=== PATIENT | female | born 1995 | race Caucasian/White ===

== ENCOUNTER 2018-09-13 05:51 | Outpatient (CLI) | payer OTHER ==
[~2018-09-13] VITALS: Ht 162.6 cm; Wt 73.5 kg
[2018-09-13 06:17] VITALS: BP 106/58
[2018-09-14] MEDS ORDERED: PREN1TAB60 PO (00:11)
[2018-09-15] MEDS ORDERED: HYDR-3652 PO (10:47)
[2018-09-15] MEDS ORDERED: SENN-52 PO (10:49)
[2018-09-15] MEDS ORDERED: IBUP-1223 PO (10:50)
== END 2018-09-13 06:48 | disposition home or self-care (01) ==
LOC: LDOP 05:51
PROVIDERS: ATTEND Obstetrics & Gynecology
DX: O75.82 Onset (spontaneous) of labor after 37 completed weeks of gestation but before 39 completed weeks gestation, with delivery by (planned) cesarean section (principal)
CPT/HCPCS: 59025; 99211; G0463

== ENCOUNTER 2018-09-13 23:07 | Outpatient (CLI) | payer OTHER ==
[~2018-09-13] VITALS: Ht 162.6 cm; Wt 73.6 kg
[2018-09-13 23:23] VITALS: BP 115/72
[2018-09-14] MEDS ORDERED: PREN1TAB60 PO (00:11)
[2018-09-15] MEDS ORDERED: HYDR-3652 PO (10:47)
[2018-09-15] MEDS ORDERED: SENN-52 PO (10:49)
[2018-09-15] MEDS ORDERED: IBUP-1223 PO (10:50)
== END 2018-09-14 00:50 | disposition home or self-care (01) ==
LOC: LDOP 23:07
PROVIDERS: ATTEND Obstetrics & Gynecology
DX: O26.893 Other specified pregnancy related conditions, third trimester (principal); R10.9 Unspecified abdominal pain; Z3A.39 39 weeks gestation of pregnancy
CPT/HCPCS: 59025; 99211; G0463